=== PATIENT | female | born 1940 | race Caucasian/White ===

== ENCOUNTER 2017-10-18 17:31 | Emergency (ER) | payer MEDICARE, OTHER ==
[2017-10-18 17:41] VITALS: BP 151/74; PULSE 78; RESP 20; TEMP 98.1; O2SAT 98
--- NOTE | 2017-10-18 20:01 | C.PDOC ---
History Of Present Illness 77 year old female presents to the ER after she noticed redness and blood to her left eye at approximately 1500. Patient is unsure how it might of happened, she denies trauma or changes in vision. Patient wears glasses for reading. Denies discharge, dryness, tearing or applying any eye drops. Time Seen by Provider: 10/18/17 18:16 Chief Complaint (Nursing): Eye Problem History Per: Patient History/Exam Limitations: no limitations Onset/Duration Of Symptoms: Hrs Current Symptoms Are (Timing): Still Present Injury To Eye?: No Wears Contact Lens?: No Associated Symptoms: denies: Decreased Vision Past Medical History Reviewed: Historical Data, Nursing Documentation, Vital Signs Vital Signs: Last Vital Signs Temp 98.1 F 10/18/17 17:38 Pulse 78 10/18/17 17:38 Resp 20 10/18/17 17:38 BP 151/74 H 10/18/17 17:38 Pulse Ox 98 10/18/17 20:06 - Medical History PMH: Arthritis, HTN, Hypercholesterolemia Family History: States: Unknown Family Hx - Social History Hx Alcohol Use: No Hx Substance Use: No Review Of Systems Eyes: Positive for: Redness, Other (Blood in eye). Negative for: Vision Change Physical Exam - Physical Exam Appears: Well, Non-toxic, No Acute Distress Skin: Normal Color, Warm, Dry, No Diaphoretic, No Pale Head: Atraumatic, Normacephalic Eye(s): bilateral: PERRL, EOMI, Other (Subconjunctival hemorrhage to lateral aspect), right: Normal Inspection Nose: Normal Oral Mucosa: Moist Neck: Normal, No Midline Cervical Tenderness, No Paracervical Tenderness, Supple Chest: Symmetrical Extremity: Normal ROM Neurological/Psych: Oriented x3, Normal Speech Gait: Steady ED Course And Treatment O2 Sat by Pulse Oximetry: 98 (Room air) Pulse Ox Interpretation: Normal Medical Decision Making Medical Decision Making: Patient reassured that she is in no acute danger at this time and explained that there is no specific treatment for it and that it will heal on it's own. Patient understands and agrees with plan to discharge and follow up with PMD. Disposition Counseled Patient/Family Regarding: Diagnosis, Need For Followup - Disposition Referrals: Solomon Zacarias [Staff Provider] - Disposition: HOME/ ROUTINE Disposition Time: 18:40 Condition: STABLE Additional Instructions: you have subconjunctival hemorrhage which will heal without any medicine please follow up with optho if your symptoms persist longer than 2 weeks of any changes in vision Instructions: Subconjunctival Hemorrhage (ED) Forms: [employer] (Swedish) Print Language: CZECH - POA Present On Arrival: None - Clinical Impression Clinical Impression: Subconjunctival hemorrhage - PA / RESEARCH RN SPEC / Resident Statement MD/DO has reviewed & agrees with the documentation as recorded. - Scribe Statement The provider has reviewed the documentation as recorded by the Scribisrrael Manriquez All medical record entries made by the Alex were at my direction and personally dictated by me. I have reviewed the chart and agree that the record accurately reflects my personal performance of the history, physical exam, medical decision making, and the department course for this patient. I have also personally directed, reviewed, and agree with the discharge instructions and disposition.
== END 2017-10-18 18:30 | disposition home or self-care (01) ==
LOC: C.ER 17:31
DX: H11.32 Conjunctival hemorrhage, left eye (principal)